=== PATIENT | female | born 1980 | race Caucasian/White ===

== ENCOUNTER 2018-09-29 06:14 | Inpatient (IN) ==
[2018-09-29] MEDS ORDERED: D5 1/2 NS 1000 ML 1,000 ML IV SCH (06:35)
[2018-09-29] MEDS ORDERED: ANCEF VIAL 1 GRAM IVP ONE (06:35)
[2018-09-29] MEDS ORDERED: ANCEF VIAL 1 GRAM ONE (06:39)
[2018-09-29] MEDS ORDERED: D5 1/2 NS 1000 ML 1,000 ML IV ONE (06:40)
[2018-09-29] MEDS ORDERED: FENTANYL INJ 250 mcg ONE (07:01)
[2018-09-29] MEDS ORDERED: LR 1000 ML IV 1,000 ML IV ONE (07:29)
[2018-09-29] MEDS ORDERED: DILAUDID INJ ONE ×2 (08:01→09:39)
[2018-09-29] MEDS ORDERED: FENTANYL INJ 100 mcg ONE (08:01)
[2018-09-29] MEDS: DILAUDID INJ IVP PRN ×3 (09:16→09:30)
[2018-09-29] MEDS ORDERED: ZOFRAN INJ 4 MG VIAL IVP PRN (09:23)
[2018-09-29] MEDS ORDERED: REGLAN INJ 10 MG VIAL IVP PRN (09:23)
[2018-09-29] MEDS ORDERED: BENADRYL INJ 50 MG VIAL IVP PRN ×2 (09:23→10:19)
[2018-09-29] MEDS ORDERED: PHENERGAN INJ 25 MG IVP PRN (09:23)
[2018-09-29] MEDS ORDERED: MORPHINE SULFATE PCA 30 MG IVP PRN (10:19)
[2018-09-29] MEDS: D5 1/2 NS 1000 ML 1,000 ML IV SCH ×2 (14:32→20:04)
[2018-09-29] MEDS ORDERED: EPHEDRINE SULFATE INJ ONE (15:07)
[2018-09-29] MEDS ORDERED: DIPRIVAN VIAL ONE (15:07)
[2018-09-29] MEDS ORDERED: NEOSTIGMINE INJ ONE (15:07)
[2018-09-29] MEDS ORDERED: LTA KIT LIDOCAINE 4% ONE (15:07)
[2018-09-29] MEDS ORDERED: ZOFRAN INJ 4 MG VIAL ONE (15:07)
[2018-09-29] MEDS ORDERED: NORCURON INJ 10 MG VIAL ONE (15:07)
[2018-09-29] MEDS ORDERED: VERSED ONE (15:07)
[2018-09-29] MEDS ORDERED: TORADOL 30 MG VIAL ONE (15:07)
[2018-09-29] MEDS ORDERED: ROBINUL ONE (15:07)
[2018-09-29] MEDS ORDERED: QUELICIN (OR ANECTINE) ONE (15:07)
[2018-09-29] MEDS ORDERED: XYLOCAINE 2 % (PLAIN) ONE (15:07)
[2018-09-29] MEDS ORDERED: SUPRANE IN ONE (15:07)
[2018-09-29] MEDS ORDERED: NS IRRIGATION 500 ML IR ONE (15:22)
[2018-09-29] MEDS ORDERED: NS IRRIGATION 1000 ML ONE (15:22)
[2018-09-29] MEDS: NICOTINE PATCH TD SCH (17:08)
[2018-09-29] MEDS: ZOFRAN INJ 4 MG VIAL IVP PRN (22:21)
[2018-09-29] MEDS: TORADOL 30 MG VIAL IVP PRN (22:22)
[2018-09-30] MEDS: TORADOL 30 MG VIAL IVP PRN ×2 (01:54→05:53)
[2018-09-30] MEDS: ZOFRAN INJ 4 MG VIAL IVP PRN ×2 (01:54→05:53)
[2018-09-30] MEDS: D5 1/2 NS 1000 ML 1,000 ML IV SCH (05:20)
[2018-09-30 06:32] LABS: BASOPHILS # (AUTO) 0.1 X10^3/uL (0.0-0.1); BASOPHILS % (AUTO) 0.5 % (0.2-1.0); EOSINOPHILS # (AUTO) 0.4 x10^3/uL (0.0-0.2); EOSINOPHILS % (AUTO) 3.8 % (0.9-2.9); HEMATOCRIT 36.7 % (36.0-47.0); HEMOGLOBIN 12.5 g/dL (12.0-16.0); LYMPHOCYTES # (AUTO) 2.5 X10^3/uL (1.3-2.9); LYMPHOCYTES % (AUTO) 21.6 % (21.0-51.0); MEAN CORPUSCULAR HEMOGLOBIN 30.6 pg (27.0-34.0); MEAN CORPUSCULAR HGB CONC 34.1 g/dL (33.0-35.0); MEAN CORPUSCULAR VOLUME 89.8 fL (80.0-100.0); MEAN PLATELET VOLUME 8.2 fL (7.4-11.0); MONOCYTES # (AUTO) 0.7 x10^3/uL (0.3-0.8); MONOCYTES % (AUTO) 5.7 % (0.0-13.0); NEUTROPHILS % (AUTO) 68.4 % (42.0-75.0); PLATELET COUNT 306 X10^3/uL (150.0-450.0); RED BLOOD COUNT 4.09 X10^6/uL (3.5-5.4); RED CELL DISTRIBUTION WIDTH 13.5 % (11.6-16.5); WHITE BLOOD COUNT 11.7 X10^3/uL (3.6-10.0)
[2018-09-30 06:39] LABS: BLOOD UREA NITROGEN 5 mg/dL (7-18); CALCIUM 7.9 mg/dL (8.5-10.1); CARBON DIOXIDE 20.1 mmol/L (21-32); CHLORIDE 107 mmol/L (98-107); COR NA(FOR HYPERGLY) 141 mmol/L (136-145); SODIUM 140 mmol/L (136-145); eGFR NON BLACK RACES > 60 (>60)
[2018-09-30] MEDS ORDERED: MOTRIN TAB 800 MG PO PRN (07:55)
[2018-09-30] MEDS ORDERED: MYLICON TAB 80 MG CHEW PO PRN (07:58)
[2018-09-30] MEDS: NICOTINE PATCH TD SCH (08:59)
[2018-09-30] MEDS: TRICOR TAB 160 MG PO SCH (09:00)
[2018-09-30] MEDS: COLACE CAP 100 MG PO SCH ×2 (09:00→20:09)
[2018-09-30] MEDS: EFFEXOR XR 150 MG CAP PO SCH (09:00)
[2018-09-30] MEDS: ESTRACE PO SCH (09:00)
[2018-09-30] MEDS: BACTROBAN CREAM TOP SCH ×2 (15:08→21:05)
[2018-09-30] MEDS ORDERED: SYNTHROID 25 mcg TAB PO SCH (16:30)
[2018-09-30] MEDS: PERCOCET TAB 5/325 MG PO PRN ×2 (16:56→21:05)
[2018-10-01] MEDS: PERCOCET TAB 5/325 MG PO PRN ×2 (01:11→05:44)
[2018-10-01] MEDS: D5 1/2 NS 1000 ML 1,000 ML IV SCH ×2 (02:24→08:29)
[2018-10-01] MEDS: BACTROBAN CREAM TOP SCH (05:43)
[2018-10-01] MEDS: NICOTINE PATCH TD SCH (08:37)
[2018-10-01] MEDS: EFFEXOR XR 150 MG CAP PO SCH (08:42)
[2018-10-01] MEDS: ESTRACE PO SCH (08:42)
[2018-10-01] MEDS: TRICOR TAB 160 MG PO SCH (08:42)
[2018-10-01] MEDS: COLACE CAP 100 MG PO SCH (08:42)
[2018-10-01 08:44] VITALS: BP 109/60
== END 2018-10-01 09:30 | disposition home or self-care (01) | DRG 743 ==
LOC: MED/SURG 06:14
PROVIDERS: ADMIT Specialist; ATTEND Specialist
DX: N83.291 Other ovarian cyst, right side; N83.292 Other ovarian cyst, left side; R10.2 Pelvic and perineal pain; D25.2 Subserosal leiomyoma of uterus
CPT/HCPCS: 36415; 80048; 85025; 94760; A4216; A4222; J0330; J0690; J1170; J1885; J2250; J2271; J2405; J2704; J2710; J3010; J3490; J7120; S5010